=== PATIENT | male | born 1965 | race Caucasian/White ===

== ENCOUNTER 2022-10-13 08:52 | Day surgery (SDC) | payer MEDICARE, MEDICAID ==
[~2022-10-13] VITALS: Ht 193 cm; Wt 81.7 kg
[2022-10-13] VITALS (10 sets, daily range): BP systolic 103–148; BP diastolic 23–96
[2022-10-13] MEDS ORDERED: diphenhydrAMINE 25mg capsule PO PRN (09:40)
[2022-10-13] MEDS ORDERED: normal saline 1,000 ML IV SCH (09:40)
[2022-10-13] MEDS ORDERED: LORazepam 0.5 MG tablet PO PRN (09:40)
[2022-10-13] MEDS ORDERED: FURO40TA4 PO (09:53)
[2022-10-13] MEDS ORDERED: FLO0.4C (09:53)
[2022-10-13] MEDS ORDERED: ADV50100 (09:53)
[2022-10-13] MEDS ORDERED: MONT-40 PO (09:53)
[2022-10-13] MEDS ORDERED: ENOX80SY24 SQ (09:53)
[2022-10-13] MEDS ORDERED: ALBU90AE (09:53)
[2022-10-13] MEDS ORDERED: WARF-55 PO (09:53)
[2022-10-13] MEDS ORDERED: METO-384 PO (09:53)
[2022-10-13] MEDS ORDERED: midazolam 1 mg/ML 2ml injection ONE (10:26)
[2022-10-13] MEDS ORDERED: fentaNYL/PF 50MCG/1 ML 2ML syringe ONE (10:26)
[2022-10-13] MEDS ORDERED: iohexol 350MG/ML 100ml bottle IV ONE (10:26)
[2022-10-13] MEDS ORDERED: LIDOcaine 1% 30ml preserv. free vial ONE (10:27)
[2022-10-13] MEDS ORDERED: heparin 1,000unit/ml 10ml vial 10 ML ONE (10:36)
[2022-10-13] MEDS ORDERED: verapamil 2.5 mg/ml inj IV ONE (10:36)
[2022-10-13] MEDS ORDERED: nitroGLYCERIN-Tridil 50MG/D5W 250 ML IV ONE (10:36)
[2022-10-13] MEDS ORDERED: iohexol 350 MG/ML 50ML vial IV ONE (11:02)
--- NOTE | 2022-10-13 11:46 | NUR ---
Bedside report received from FREEMAN Hunter s/p angiogram. Vital signs stable. NSR on engineering analyst. Right radial site stable with no bleeding or hematoma. Vasc band in place. Right venous groin site stable with no bleeding noted. Dressing CDI.
[2022-10-13] MEDS ORDERED: proCHLORperazine 10 MG/2 ml inj IV PRN (12:05)
[2022-10-13] MEDS ORDERED: OXAZEpam 15mg capsule PO PRN (12:05)
[2022-10-13] MEDS ORDERED: ondansetron/PF 4mg/2ml inj IV PRN (12:05)
[2022-10-13] MEDS ORDERED: HYDROcodone/acetaminophen 5mg/325mg tablet PO PRN (12:05)
[2022-10-13] MEDS ORDERED: HYDROcodone/acetaminophen 10/325mg tab PO PRN (12:05)
== END 2022-10-13 15:00 | disposition home or self-care (01) ==
LOC: SSTAY O 08:52
PROVIDERS: ATTEND Internal Medicine Interventional Cardiology
DX: R94.39 Abnormal result of other cardiovascular function study (principal); I07.1 Rheumatic tricuspid insufficiency; I45.10 Unspecified right bundle-branch block; I49.3 Ventricular premature depolarization; R94.31 Abnormal electrocardiogram [ECG] [EKG]; J43.9 Emphysema, unspecified; I50.9 Heart failure, unspecified; I48.0 Paroxysmal atrial fibrillation; F17.210 Nicotine dependence, cigarettes, uncomplicated; Z98.890 Other specified postprocedural states; Z79.01 Long term (current) use of anticoagulants; Z79.51 Long term (current) use of inhaled steroids; Z79.899 Other long term (current) drug therapy
CPT/HCPCS: 93005; 93460; 99152; 99153; A6258; C1751; C1769; C1894; J1644; J2250; J3010; J3490; J7030; Q0163; Q9967; A4620; A6402

== ENCOUNTER 2023-09-07 10:50 | Day surgery (SDC) | payer MEDICARE, MEDICAID ==
[2023-09-07] VITALS (9 sets, daily range): BP systolic 108–134; BP diastolic 59–74; PULSE 60–62; RESP 12–16; TEMP 98; O2SAT 98–99
[~2023-09-07] VITALS: Ht 193 cm; Wt 81.5 kg
[~2023-09-07 10:50] MED LIST: ADV50100 PO; ALBU17AE26 PO; ASPI81TA53 PO; CEPH-585 PO; FLO0.4C PO; FURO40TA4 PO; HYDR-3972 PO; LOP25T PO; MONT-40 PO; ROSU10TA28 PO; WARF-55 PO
[2023-09-07] MEDS ORDERED: LIDOcaine 1% 30ml preserv. free vial ONE (11:02)
[2023-09-07] MEDS ORDERED: fentaNYL/PF 50MCG/1 ML 2ML syringe ONE ×2 (11:02→11:08)
[2023-09-07] MEDS ORDERED: iohexol 350 MG/ML 50ML vial IV ONE ×2 (11:02→12:54)
[2023-09-07] MEDS ORDERED: midazolam 1 mg/ML 2ml injection ONE ×2 (11:02→11:08)
[2023-09-07] MEDS ORDERED: normal saline 1,000 ML IV SCH (11:20)
[2023-09-07] MEDS ORDERED: LORazepam 0.5 MG tablet PO PRN (11:20)
[2023-09-07] MEDS ORDERED: METO-384 PO (11:45)
[2023-09-07 12:23] LABS: INR 1.4 INR; PROTHROMBIN TIME 14.3 SECONDS (9.0-12.0)
[2023-09-07] MEDS ORDERED: HYDROcodone/acetaminophen 10/325mg tab PO PRN (13:40)
[2023-09-07] MEDS ORDERED: HYDROcodone/acetaminophen 5mg/325mg tablet PO PRN (13:40)
[2023-09-07 13:41] LABS: ISTAT HGB MIX 10.2 g/dl (14.0-17.9); ISTAT Hct MIX 30 %PCV (42-52); ISTAT O2 SATURATION MIX VENOUS 58 % (60-80); ISTAT SOURCE BLNK
== END 2023-09-07 15:20 | disposition home or self-care (01) ==
LOC: SSTAY O 10:50
PROVIDERS: ATTEND Student in an Organized Health Care Education/Training Program
DX: I50.9 Heart failure, unspecified (principal); I48.91 Unspecified atrial fibrillation; I25.10 Atherosclerotic heart disease of native coronary artery without angina pectoris; Z79.01 Long term (current) use of anticoagulants; Z79.899 Other long term (current) drug therapy; Z95.1 Presence of aortocoronary bypass graft; Z95.4 Presence of other heart-valve replacement
CPT/HCPCS: 33289; 36415; 82803; 85014; 85610; 93005; 99152; 99153; C2624; J1644; J2250; J3010; J3490; J7030; Q9967; A6258; C1751; C1769; C1894

== ENCOUNTER 2025-04-09 13:57 | Emergency (ER) | payer MEDICARE, MEDICAID ==
[~2025-04-09] VITALS: Ht 193 cm; Wt 84.8 kg
[~2025-04-09 13:57] MED LIST changes: -ALBU17AE26 PO; -ASPI81TA53 PO; -CEPH-585 PO; -FLO0.4C PO; -FURO40TA4 PO; -HYDR-3972 PO; -LOP25T PO; +METO-384 PO; -ROSU10TA28 PO; +ROSU10TA72 PO; +TAMS-55 PO
[2025-04-09 14:08] VITALS: BP 131/58; PULSE 60; RESP 18; TEMP 97.8; O2SAT 96
--- NOTE | 2025-04-09 15:00 | Physician Documentation ---
HPI ~ General Chief Complaint: Tooth Problem Stated Complaint: TOOTH INFECTION Time Seen by MD: 14:20 OK to notify your PCP?: Yes Source: patient Mode of Arrival: POV Exam Limitations: no limitations History of Present Illness HPI Comment 59-year-old male presenting with left upper tooth pain worse since Wednesday. He fractured this tooth a couple of months ago. He was seen at [facility] dentist and told he needs to see an oral surgeon. Today, he went to [facility] to see an oral surgeon but they do not have 1 on staff. On Wednesday he was started on penicillin and given some [place] 10/325 3 day supply. Today at [facility] the dentist made a comment that the antibiotics do not appear to be working and he needs to have him switched. Last dose of [place] was 3 hours ago Medication Reconciliation Allergies: Coded Allergies: No Known Drug Allergies (Verified Allergy, Unknown, 04/09/25) Scheduled Fluticasone/Salmeterol (Advair 100-50 Diskus), 1 PUFF PO BID, (Reported) Metoprolol Succinate (Metoprolol Succinate), 1 TAB PO DAILY, (Reported) Montelukast Sodium (Montelukast Sodium), 1 TAB PO DAILY, (Reported) Rosuvastatin Calcium (Rosuvastatin Calcium), 1 TAB PO HS, (Reported) Tamsulosin Hcl* (Flomax*), 1 CAPSULE PO HS, (Reported) Warfarin Sodium (Warfarin Sodium), 1 TAB PO DAILY, (Reported) Review of Systems All Other Systems at this time: Reviewed and Negative Physical Exam Vital Signs: RN Vital Signs have been reviewed: Yes, Temperature: 97.8, Source: Temporal, Heart Rate: 60, Respiratory Rate: 18, BP: 131/58, Pulse Oximetry: 96, Weight: 84.800 Pulse Oximetry Reflects: adequate oxygenation Physical Exam General: Alert, no apparent distress. HEENT: PERRL, EOMI, no injection, moist mucous membranes. Neck: Full range of motion. Respiratory: Lungs clear, no respiratory distress. Chest: No accessory muscle use. Cardiovascular: Regular rate and rhythm, no murmurs. Gastrointestinal: Soft, nontender, nondistended. Bowels sounds present. Extremities: Normal range of motion, no deformity. Neurologic: Oriented x4. Psychiatric: Normal mood and affect. Skin: Normal color, warm and dry. No edema, no ecchymosis. Teeth/Gums: fractured tooth, missing teeth, gingiva redness, gingiva swelling Teeth/Gums Fractured tooth 11 into the gumline Progress Results/Orders Reviewed/noted all lab results: Yes Results/Orders Vital Signs 04/09/25 14:08 Temp 97.8 Pulse 60 Resp 18 B/P (MAP) 131/58 Pulse Ox 96 Medical Decision Making Findings He is a 59-year-old male with dental pain. He has tried seen to dentist since Wednesday and they have started him on penicillin and [place] 10/325 awaiting referral to oral surgeon. On exam he has gingival swelling and erythema, and the #11 Tooth is broken to the gumline. I will start him on a 2nd antibiotic and educated on the should finish the penicillin. Prescribed clindamycin, benzocaine gel, and [place] 10. Should follow up with his primary care provider in the next 3 days. He should also continue his efforts with finding an oral surgeon to remove that tooth. He should return back here for any new or worsening symptoms. Differential Dx:Considerations: Include: Facial Cellulitis, Periapical abscess, Peridontal abscess, Pulpitis Departure Disposition: HOME / SELF CARE / HOMELESS Impression: Primary Impression: Dental abscess Condition: Stable Discharge Instructions: Dental Abscess Referrals: NO PRIMARY CARE PROVIDER (PCP) Prescriptions Clindamycin HCl (Clindamycin HCl) 300 Mg Capsule 1 CAP PO Q8H for 10 Days, #30 CAP Prov: KENDAL HERNANDEZP 04/09/25 Hydrocodone Bit/Acetaminophen (Hydrocodon-Acetaminophn 10-325 tablet) 10mg- 325mg Tablet 1 TAB PO QID PRN PRN for pain for 5 Days, #20 TAB Prov: KENDAL HERNANDEZP 04/09/25 Benzocaine* (Anbesol*) 12 Ml Bottle 1 APPLIC TP Q2H for 7 Days, #1 EACH Prov: KENDAL HERNANDEZP 04/09/25 Education Educated: Patient, Family Educated regarding: diagnosis, treatment, prognosis, need for follow up Signature Scribe Signature: . Attestation: Scribed for Kendal Hernandezp by Kendal Santiago NP . 04/09/25 15:06 KENDAL HERNANDEZP April 09, 2025 15:00
[2025-04-09] MEDS ORDERED: ANBESOL TP (15:05)
[2025-04-09] MEDS ORDERED: CLIN-197 PO (15:05)
[2025-04-09] MEDS ORDERED: HYDR-3972 PO (15:05)
== END 2025-04-09 15:17 | disposition home or self-care (01) ==
LOC: ER 13:59
DX: K04.7 Periapical abscess without sinus (principal)
CPT/HCPCS: 99283